=== PATIENT | female | born 1975 | race Caucasian/White ===

== ENCOUNTER 2016-09-04 00:47 | Emergency (ER) | payer MEDICAID ==
[~2016-09-04] VITALS: Ht 162.6 cm; Wt 77.0 kg
[2016-09-04] MEDS ORDERED: KETOROLAC 30MG/ML VIAL IV STA (01:26)
[2016-09-04] MEDS ORDERED: SODIUM CHLORIDE 0.9% 1,000 ML IV ONE (01:26)
[2016-09-04] MEDS ORDERED: ONDANSETRON HCL 4MG/2ML VIAL IV STA (01:26)
[2016-09-04 01:40] LABS: BASOPHILS % 0.4 % (0.0-2.0); EOSINOPHILS % 1.2 % (0.0-5.0); HEMATOCRIT. 41.8 % (36.0-48.0); HEMOGLOBIN. 14.9 g/dL (12.0-16.0); LYMPHOCYTES % 14.2 % (20.0-50.0); MEAN CORPUSCULAR HEMOGLOBIN 32.3 pg (28.0-32.0); MEAN CORPUSCULAR VOLUME 90.6 fL (81.0-99.0); MEAN PLATELET VOLUME 10.2 fl (7.4-10.4); MONOCYTES % 4.6 % (2.0-8.0); NEUTROPHILS % 79.6 % (40.0-76.0); PLATELET 160 x1000/uL (130-400); RED BLOOD CELL COUNT 4.62 mill/uL (4.2-5.4); RED CELL DISTRIBUTION WIDTH 13.5 % (11.6-14.6)
[2016-09-04 01:58] LABS: CARBON DIOXIDE 19 mEq/L (21-32); CHLORIDE 107 mEq/L (98-107); TROPONIN I < 0.02 ng/mL (0.00-0.04)
[2016-09-04] MEDS ORDERED: IOHEXOL-350 100 ML BOTTLE ONE (03:00)
[2016-09-04] MEDS ORDERED: SODIUM CHLORIDE 0.9% 10ML VIAL ONE (03:00)
[2016-09-04 05:01] VITALS: BP 113/70
== END 2016-09-04 05:58 | disposition home or self-care (01) ==
LOC: ER 00:47
DX: R07.9 Chest pain, unspecified (principal); E03.9 Hypothyroidism, unspecified; E11.9 Type 2 diabetes mellitus without complications; I10 Essential (primary) hypertension; F17.200 Nicotine dependence, unspecified, uncomplicated
CPT/HCPCS: 36415; 71010; 71275; 80053; 84484; 85025; 85379; 93005; 96361; 96374; 96375; 99285; A4216; J1885; J2405; Q9967; Z7610; J7030

== ENCOUNTER 2019-08-30 12:11 | Emergency (ER) | payer MEDICAID ==
[~2019-08-30] VITALS: Ht 167.6 cm; Wt 65.0 kg
[2019-08-30] MEDS ORDERED: NAPROXEN 250MG TABLET PO SCH (12:30)
[2019-08-30] MEDS ORDERED: ACETAMINOPHEN 500MG TABLET PO SCH (12:30)
[2019-08-30] MEDS ORDERED: LORAZEPAM 1MG TABLET PO SCH (12:30)
[2019-08-30 14:01] VITALS: BP 119/56
== END 2019-08-30 14:09 | disposition home or self-care (01) ==
LOC: ER 12:46
DX: F43.22 Adjustment disorder with anxiety (principal); E11.9 Type 2 diabetes mellitus without complications; E78.00 Pure hypercholesterolemia, unspecified; I10 Essential (primary) hypertension; Z98.890 Other specified postprocedural states
CPT/HCPCS: 99284

== ENCOUNTER 2019-09-07 02:10 | Emergency (ER) | payer MEDICAID ==
[~2019-09-07] VITALS: Ht 165.1 cm; Wt 77.0 kg
[2019-09-07 02:21] VITALS: BP 126/86
== END 2019-09-07 03:07 | disposition left against medical advice (07) ==
LOC: ER 02:10
DX: Z53.21 Procedure and treatment not carried out due to patient leaving prior to being seen by health care provider (principal); E11.9 Type 2 diabetes mellitus without complications; I10 Essential (primary) hypertension

== ENCOUNTER 2023-08-05 02:54 | Emergency (ER) | payer MEDICAID ==
[~2023-08-05] VITALS: Ht 152.4 cm; Wt 75.0 kg
[2023-08-05 03:03] VITALS: BP 148/82; PULSE 94; RESP 18; TEMP 98.6; O2SAT 99
== END 2023-08-05 03:34 | disposition left against medical advice (07) ==
LOC: ER 02:54
DX: H92.01 Otalgia, right ear (principal); Z53.21 Procedure and treatment not carried out due to patient leaving prior to being seen by health care provider

== ENCOUNTER 2024-12-18 01:58 | Emergency (ER) | payer MEDICAID ==
[~2024-12-18] VITALS: Ht 172.7 cm; Wt 170.0 kg
[2024-12-18 02:05] VITALS: TEMP 37.3; O2SAT 98
[2024-12-18 03:10] LABS: BASOPHILS % 0.6 % (0.0-2.0); EOSINOPHILS % 2.5 % (0.0-5.0); HEMATOCRIT. 46.6 % (36.0-48.0); HEMOGLOBIN. 15.7 g/dL (12.0-16.0); LYMPHOCYTES % 24.3 % (20.0-50.0); MEAN PLATELET VOLUME 10.6 fl (7.4-10.4); MONOCYTES % 5.6 % (2.0-8.0); NEUTROPHILS % 67.0 % (40.0-76.0); PLATELET 134 x1000/uL (130-400); RED BLOOD CELL COUNT 5.05 mill/uL (4.2-5.4); RED CELL DISTRIBUTION WIDTH 14.1 % (11.6-14.6)
[2024-12-18 03:15] LABS: HCG SCREEN NEGATIVE
[2024-12-18 03:18] LABS: CREATININE 0.7 mg/dL (0.6-1.0)
[2024-12-18 03:19] LABS: UREA NITROGEN BLOOD < 5 mg/dL (9-23)
[2024-12-18 03:20] LABS: ASPARTATE AMINOTRANSFERASE 91 IU/L (<34)
[2024-12-18 03:21] LABS: BILIRUBIN TOTAL 0.4 mg/dL (0.1-1.0); PROTEIN TOTAL 8.0 g/dL (6.0-8.3)
[2024-12-18] MEDS: SODIUM CHLORIDE 0.9% 1,000 ML IV ONE (04:07)
[2024-12-18 05:24] LABS: CLARITY URINE CLEAR (CLEAR); COLOR URINE YELLOW (YELLOW); GLUCOSE URINE 3+ (NEGATIVE); KETONES URINE 1+ (NEGATIVE); LEUKOCYTE ESTERASE URINE NEGATIVE (NEGATIVE); NITRITE URINE NEGATIVE (NEGATIVE); OCCULT BLOOD URINE NEGATIVE (NEGATIVE); PH URINE 6.5 (4.5-8.0); PROTEIN URINE NEGATIVE (NEGATIVE); SPECIFIC GRAVITY URINE 1.027 (1.005-1.030); UROBILINOGEN URINE 0.2 E.U./dL (0.2-1.0)
[2024-12-18 06:00] VITALS: BP 137/79; PULSE 99; RESP 14; O2SAT 98
[2024-12-18 07:19] LABS: RBC URINE NONE SEEN /hpf (0-2); SQUAMOUS EPITHELIAL CELL URINE RARE /lpf (RARE/1+); WBC URINE 0-2 /hpf (0-2)
[2024-12-18 07:21] LABS: BACTERIA URINE NONE SEEN
== END 2024-12-18 06:19 | disposition home or self-care (01) ==
LOC: ER 01:58
DX: D25.9 Leiomyoma of uterus, unspecified (principal); F10.129 Alcohol abuse with intoxication, unspecified; R53.1 Weakness; E11.9 Type 2 diabetes mellitus without complications; I10 Essential (primary) hypertension; Y90.9 Presence of alcohol in blood, level not specified
CPT/HCPCS: 80053; 81003; 80320; 84703; 85025; 36415; 71045; 76830; 76856; 96360; 99284; J7030; G0480